=== PATIENT | female | born 1960 | race Caucasian/White ===

== ENCOUNTER 2021-03-28 16:42 | Emergency (ER) | payer OTHER ==
[2021-03-28 16:50] VITALS: BP 130/76
[2021-03-28] MEDS ORDERED: BUFFERED LIDOCAINE 10 ML SYRINGE SUBQ STA (18:10)
[2021-03-28] MEDS ORDERED: ONDANSETRON ODT 4 MG TABLET TL STA (18:11)
[2021-03-28] MEDS ORDERED: HYDROmorphone 1 MG/ML CARPUJECT IM STA (18:11)
--- NOTE | 2021-03-28 18:13 | ED Physician Documentation ---
History of Present Illness - Stated complaint Stated Complaint: FALL DOWN STAIRS/HEAD INJ/BLEED - Chief complaint Chief Complaint: Trauma Hd/Nk - Additonal information Additional information: 60-year-old female presents emergency department for evaluation of posterior scalp trauma headache and neck pain after a fall down 2 stairs. She was descending the stairs that she had reached the bottom missed them fell forward landing on her right hip but striking her head on the corner of a door. She did not lose consciousness but immediately had a headache nausea and for a brief period of blurry vision. She does have a posterior scalp laceration bleeding controlled with pressure. Patient is not anticoagulated. Past medical history most significant for hypertension for which she takes lisinopril she also has a history of cervical neck pain status post fusion with known bulging disks. Review of Systems Constitutional: denies: Fever, Chills Eyes: reports: Reviewed and negative Ears: reports: Tinnitus/ringing. denies: Loss of hearing, Ear pain, Drainage/discharge Nose: denies: Rhinorrhea / runny nose, Congestion, Epistaxis Throat: reports: Reviewed and negative Cardiac: denies: Chest pain / pressure, Palpitations Respiratory: denies: Dyspnea, Cough GI: denies: Abdominal Pain, Abdominal Swelling : denies: Dysuria, Frequency, Hesitancy Skin: reports: Laceration (s) (Posterior occiput). denies: Rash, Lesions Musculoskeletal: reports: Neck pain. denies: Back pain, Extremity pain, Joint pain Neurologic: reports: Headache, Head injury. denies: Syncope, Seizure, Confused, LOC Psychiatric: reports: Reviewed and negative PD PAST MEDICAL HISTORY - Allergies Allergies/Adverse Reactions: Allergies Allergy/AdvReac Type Severity Reaction Status Date / Time No Known Drug Allergies Allergy Verified 03/28/21 16:46 PD ED PE EXPANDED - General General: Alert, No acute distress, Well developed/nourished - HEENT HEENT: Head injury, PERRL (Negative for raccoon eyes and adorno sign.), Other (3 cm laceration linear posterior occiput. No surrounding hematoma ecchymosis or cranial tenderness.) - Cardiac Cardiac: Regular Rate, Radial strong equal, Cap refill < 2 sec. No: Murmur Present - Respiratory Respiratory: Clear to ausultation ana. No: Distress, Labored - Abdomen Abdomen: Normal Bowel sounds. No: Tender to palpation - Derm Derm: Laceration(s) - Extremities Extremities: Normal. No: Deformity, Tenderness - Neuro Neuro: Alert and Oriented X 3, CNII-XII intact, Normal gait, Normal speech - GCS Eye Opening: Spontaneous Motor: Obeys Commands Verbal: Oriented Total: 15 Results - Vitals Vitals: Vital Signs - 24 hr 03/28/21 16:46 Temperature 36.5 C Heart Rate 60 Respiratory 16 Rate Blood Pressure 130/76 O2 Saturation 100 Oxygen O2 Source Room air - Rads (name of study) CT head Radiology: Final report received (No acute process) Cervical CT Radiology: Final report received (Straightening of the normal curvature. No fracture. Hardware is intact.) Procedures - Laceration (location) posterior occiput Length in cm: 3 Wound type: Linear, Into subcut fat Neurovascular status: Sensory intact Anesthesia: Lidocaine 1% Wound preparation: Chlorhexadine, Irrigated copiously NS Skin layer closure: Fabiano (5) Other: Patient tolerated well, No complications, Tetanus UTD PD MEDICAL DECISION MAKING - ED course Complexity details: reviewed results, re-evaluated patient, d/w patient ED course: 60-year-old female presents emergency department for evaluation of headache and neck pain after falling down 2 stairs striking her head on the corner of a door. She had immediate headache and nausea but no loss of consciousness. She presents with a 3 cm posterior scalp laceration. This was easily closed with 5 fabiano. Her tetanus is up-to-date. CT of the head is without acute findings. Given history of a spinal fusion CT of the neck was obtained given mechanism. No fracture or dislocation. Hardware is intact though there is straightening of the normal cervical curvature. I suspect that she does have a postconcussive injury. Routine wound care to the laceration and staple removal in 5 to 7 days was discussed. Emergent return precautions discussed Departure - Departure Disposition: 01 Home, Self Care Clinical Impression: Fall (on) (from) other stairs and steps, initial encounter Occipital scalp laceration Qualifiers: Encounter type: initial encounter Qualified Code(s): S01.01XA - Laceration without foreign body of scalp, initial encounter Concussion Qualifiers: Encounter type: initial encounter Loss of consciousness presence/duration: without LOC Qualified Code(s): S06.0X0A - Concussion without loss of consciousness, initial encounter Condition: Stable Record reviewed to determine appropriate education?: Yes Instructions: Concussion Picher, ED Concussion Comments: [place] after a fall. You sustained a 3 cm posterior scalp laceration. This was closed with 5 fabiano. These should be removed in 5 to 7 days. You may shower normally. Do recommend that you place a thin layer of antibiotic ointment such as Neosporin or bacitracin over the wound after showering. If at any point you have concerns of infection, fevers redness increased pain or milky drainage from around the laceration please return to the ER for a second look. The CT of your head neck do not show any broken bones or concerns of bleeding in the brain but given the mechanism I suspect that you do have a concussion. The most important treatment for concussion is allowing the brain to rest. You need adequate sleep at night, avoid caffeine stimulants and alcohol. Please avoid screen time and limit cell phone TV and computer use to less than 2 hours a day. I do recommend that you take Tylenol or ibuprofen for headache and neck pain. At any point you feel that your symptoms are worsening, you have a suddenly severe headache, uncontrolled vomiting, are significantly lethargic or have focal weakness in your arms or legs and please return immediately to the ER for a second evaluation.
--- NOTE | 2021-03-28 19:10 | CT Report ---
PROCEDURE: CERVICAL SPINE WO INDICATIONS: seack pain after fall TECHNIQUE: Noncontrast 3 mm thick sections acquired from the skull base to the T4 level. Sagittal and coronal r eformats were then constructed. For radiation dose reduction, the following was used: automated exp osure control, adjustment of mA and/or kV according to patient size. COMPARISON: None. FINDINGS: Image quality: Excellent. Bones: No fractures or dislocations. Visualized superior ribs are intact. There is straightening o f normal cervical curvature. Anterior fusion from C4 through C6 is present. Hardware appears intact. Soft tissues: Prevertebral soft tissues are normal in thickness. No paravertebral hematomas. No ap ical pneumothoraces. IMPRESSION: No visualized fracture. Reviewed by: Radha Ghosh MD on 03/28/2021 7:09 PM PDT Approved by: Radha Ghosh MD on 03/28/2021 7:09 PM PDT Station ID: [id number]
--- NOTE | 2021-03-28 19:11 | CT Report ---
PROCEDURE: HEAD WO INDICATIONS: neck pain afer fall TECHNIQUE: Noncontrast 4.5 mm thick angled axial sections acquired from the foramen magnum to the vertex. For r adiation dose reduction, the following was used: automated exposure control, adjustment of mA and/or kV according to patient size. COMPARISON: CT cervical spine 03/28/2021 FINDINGS: Image quality: Excellent. CSF spaces: Basal cisterns are patent. No extra-axial fluid collections. Ventricles are normal in size and shape. Brain: No midline shift. No intracranial masses or hemorrhage. German-white matter interface is norm al. Skull and face: Calvarium and visualized facial bones are intact, without suspicious lesions. Sinuses: Visualized sinuses and mastoids are clear. IMPRESSION: 1. No acute intracranial process. Reviewed by: Radha Ghosh MD on 03/28/2021 7:10 PM PDT Approved by: Radha Ghosh MD on 03/28/2021 7:10 PM PDT Station ID: [id number]
[2021-03-28] MEDS ORDERED: BACITRACIN ZINC OINT 1 PACKET TOP STA (19:19)
== END 2021-03-28 19:21 | disposition home or self-care (01) ==
LOC: ED 16:42
DX: S01.01XA Laceration without foreign body of scalp, initial encounter (principal); S06.0X0A Concussion without loss of consciousness, initial encounter; I10 Essential (primary) hypertension; Z98.1 Arthrodesis status; W10.8XXA Fall (on) (from) other stairs and steps, initial encounter; Y93.89 Activity, other specified
CPT/HCPCS: 12002; 99282; 99284

== ENCOUNTER 2021-11-20 08:27 | Outpatient (CLI) | payer OTHER ==
--- NOTE | 2021-11-29 08:38 | Mammography Report ---
BILATERAL DIGITAL SCREENING MAMMOGRAM 3D/2D: 11/20/2021 CLINICAL: Routine screening. No prior exams were available for comparison. There are scattered fibroglandular elements in both br easts. No significant masses, calcifications, or other findings are seen in either breast. IMPRESSION: NEGATIVE There is no mammographic evidence of malignancy. A 1 year screening mammogram is recommended. This exam was interpreted at Station ID: [id number]. NOTE: For mammograms, a report in lay terms will be sent to the patient. Approximately 15% of breast malignancies will not be visualized mammographically. In the management of a palpable breast mass, a negative mammogram must not discourage biopsy of a clinically suspicious lesion. Electronically Signed By: Dominique cosby/matilda:11/28/2021 08:52:24 ACR BI-RADS Category 1: Negative 3341F PARENCHYMAL PATTERN: (A) - The breast(s) demonstrate(s) scattered fibroglandular densities. BI-RADS CATEGORY: (1) - 1 RECOMMENDATION: (ANNUAL) - Recommend routine annual screening mammography. [id number] 1 year screening LATERALITY: (B)
== END 2021-11-20 08:28 | disposition home or self-care (01) ==
LOC: DI.N 08:27
DX: Z12.31 Encounter for screening mammogram for malignant neoplasm of breast (principal)

== ENCOUNTER 2022-06-20 12:42 | Outpatient (CLI) | payer OTHER ==
[2022-06-20 13:08] LABS: ALBUMIN 4.5 g/dL (3.2-5.5); BILIRUBIN,DIRECT 0.1 mg/dL (0.1-0.5); BILIRUBIN,TOTAL 0.8 mg/dL (0.2-1.0); TOTAL PROTEIN 7.2 g/dL (6.7-8.2)
== END 2022-06-20 12:43 | disposition home or self-care (01) ==
LOC: LAB 12:42
PROVIDERS: ATTEND Internal Medicine Gastroenterology
DX: R11.2 Nausea with vomiting, unspecified (principal); R10.84 Generalized abdominal pain
CPT/HCPCS: 36415; 80076

== ENCOUNTER 2022-12-01 07:41 | Outpatient (CLI) | payer OTHER ==
--- NOTE | 2022-12-01 12:05 | MRI Report ---
PROCEDURE: ANKLE WO - LT INDICATIONS: CHRONIC PAIN INSTEP OF LEFT ANKLE AND ARCH TECHNIQUE: Noncontrast Magnetic Resonance Imaging (MRI) of the ankle/hindfoot was performed utilizing the follow ing sequences: sagittal T1 spin echo, sagittal T2 fast spin echo with fat saturation, axial PD fast s pin echo, axial T2 fast spin echo with fat saturation, coronal T1 spin echo, and coronal T2 fast spin echo with fat saturation. COMPARISON: None. FINDINGS: Image quality: Excellent. Bones and joints: No acute trabecular bone injury or fracture. No hindfoot coalition. Full-thickness cartilage loss is seen at the medial talar dome with mild subchondral edema and remodeling of the subchondral plate but no definite osteochondral defect. Mild degenerative changes are seen at the second and third tarsome tatarsal joints with mild subchondral edema. Osseous edema within the plantar aspect of the calcaneus is most likely reactive. Medial structures: The deltoid ligament and the spring ligament are intact. There is mild tenosynovitis of the medial fl exor tendons. A lobular cyst is seen in the region of the tarsal tunnel measuring 2.5 x 1.1 x 0.8 cm, just anterior to the posterior tibial neurovascular bundle. No acute or chronic denervation changes are seen within the visualized foot musculature. Lateral structures: There is chronic complete tearing of the anterior talofibular ligament. The calcaneofibular ligament appears thickened and indistinct, consistent with a remote prior moderate grade sprain. The posterior talofibular ligament is intact. The anterior and posterior tibiofibular ligaments are intact. The pe roneus longus and peroneus brevis tendons demonstrate mild tendinosis. The sinus tarsi demonstrates m ild partial effacement of the normal fatty signal. Anterior structures: The tibialis anterior, extensor hallucis longus, and extensor digitorum longus tendons appear intact. Posterior and plantar structures: The Achilles tendon is intact. There is thickening of the proximal plantar fascia with a small amount of fluid signal intensity within the central band of its calcaneal attachment, consistent with parti al tearing. There is surrounding soft tissue edema. Osseous edema is seen in the adjacent portion of the calcaneus where there is a small plantar calcaneal enthesophyte. No acute osseous fracture. No di sproportionate atrophy of the abductor digiti minimi muscle. IMPRESSION: 1.Partial tearing of the proximal plantar fascia superimposed on chronic fasciitis, with surrounding soft tissue and osseous edema. No acute osseous fracture. 2.Chronic complete tearing of the anterior talofibular ligament. Remote prior moderate grade sprain o f the calcaneofibular ligament. 3.Mild peroneus brevis and longus tendinosis. 4.Mild tenosynovitis of the posterior tibialis, flexor digitorum longus, and flexor hallucis longus t endons. 5.Lobular ganglion cyst is seen within the tarsal tunnel just anterior to the posterior tibial neurov ascular bundle. No acute or chronic denervation changes are seen within the included foot musculature . Recommend correlation for tarsal tunnel syndrome. 6.Focal full-thickness cartilage loss at the medial talar dome with subchondral edema. Mild degenerat dolly changes at the second and third tarsometatarsal joints. Reviewed by: Anjel Albarran MD on 12/01/2022 12:04 PM PST Approved by: Anjel Albarran MD on 12/01/2022 12:04 PM PST Station ID: [id number]
== END 2022-12-01 07:42 | disposition home or self-care (01) ==
LOC: DI 07:41
PROVIDERS: ATTEND Podiatrist
DX: S96.822A Laceration of other specified muscles and tendons at ankle and foot level, left foot, initial encounter (principal); S93.492A Sprain of other ligament of left ankle, initial encounter; M67.874 Other specified disorders of tendon, left ankle and foot; M67.472 Ganglion, left ankle and foot; M94.272 Chondromalacia, left ankle and joints of left foot; M19.072 Primary osteoarthritis, left ankle and foot

== ENCOUNTER 2022-12-05 14:19 | Outpatient (CLI) | payer OTHER ==
--- NOTE | 2022-12-08 11:15 | Mammography Report ---
BILATERAL DIGITAL SCREENING MAMMOGRAM 3D/2D: 12/05/2022 CLINICAL: Routine screening. Comparison is made to exam dated: 11/20/2021 mammogram - [facility]. There are scattered areas of fibroglandular density in both breasts (category b / 25%-50% glandular t issue). No significant masses, calcifications, or other findings are seen in either breast. There has been no significant interval change. IMPRESSION: NEGATIVE There is no mammographic evidence of malignancy. A 1 year screening mammogram is recommended. Based on the Tyrer Cuzick model (a risk assessment model) the patients lifetime risk is 9.2% and her 10 year risk is 3.8%. According to the ACR, ACS, and NCCN guidelines, an annual breast MRI exam ree g with mammogram is recommended if the patients lifetime risk is 20% or greater. This exam was interpreted at Station ID: [id number]. NOTE: For mammograms, a report in lay terms will be sent to the patient. Approximately 15% of breast malignancies will not be visualized mammographically. In the management of a palpable breast mass, a negative mammogram must not discourage biopsy of a clinically suspicious lesion. Electronically Signed By: James Gomez M.D. aty/matilda:12/05/2022 17:32:25 letter sent: No_Letter ACR BI-RADS Category 1: Negative 3341F PARENCHYMAL PATTERN: (A) - The breast(s) demonstrate(s) scattered fibroglandular densities. BI-RADS CATEGORY: (1) - 1 Mammogram [id number] 1 year screening LATERALITY: (B)
== END 2022-12-05 14:20 | disposition home or self-care (01) ==
LOC: DI 14:19
DX: Z12.31 Encounter for screening mammogram for malignant neoplasm of breast (principal)

== ENCOUNTER 2023-12-09 08:01 | Outpatient (CLI) | payer OTHER ==
--- NOTE | 2023-12-10 08:35 | Mammography Report ---
BILATERAL DIGITAL SCREENING MAMMOGRAM 3D/2D: 12/09/2023 CLINICAL: Routine screening. Comparison is made to exams dated: 12/05/2022 mammogram and 11/20/2021 mammogram - [facility]. There are scattered areas of fibroglandular density in both breasts (category b / 25%-50% glandular t issue). No significant masses, calcifications, or other findings are seen in either breast. There has been no significant interval change. IMPRESSION: NEGATIVE There is no mammographic evidence of malignancy. A 1 year screening mammogram is recommended. Based on the Tyrer Cuzick model (a risk assessment model) the patient's lifetime risk is 8.9% and her 10 year risk is 3.9%. According to the ACR, ACS, and NCCN guidelines, an annual breast MRI exam ree g with mammogram is recommended if the patient's lifetime risk is 20% or greater. This exam was interpreted at Station ID: [id number]. NOTE: For mammograms, a report in lay terms will be sent to the patient. Approximately 15% of breast malignancies will not be visualized mammographically. In the management of a palpable breast mass, a negative mammogram must not discourage biopsy of a clinically suspicious lesion. Electronically Signed By: Jeffrey Dye M.D. [facility] [place]12/09/2023 20:42:53 ACR BI-RADS Category 1: Negative 3341F PARENCHYMAL PATTERN: (A) - The breast(s) demonstrate(s) scattered fibroglandular densities. BI-RADS CATEGORY: (1) - 1 RECOMMENDATION: (ANNUAL) - Recommend routine annual screening mammography. [id number] 1 year screening LATERALITY: (B)
== END 2023-12-09 08:02 | disposition home or self-care (01) ==
LOC: DI 08:01
DX: Z12.31 Encounter for screening mammogram for malignant neoplasm of breast (principal); R92.323 Mammographic fibroglandular density, bilateral breasts

== ENCOUNTER 2023-12-23 08:16 | Outpatient (CLI) | payer OTHER ==
--- NOTE | 2023-12-23 09:55 | Ultrasound Report ---
ULTRASOUND OF LEFT AXILLA: 12/23/2023 CLINICAL: Palpable left axilla lump. Comparison is made to exams dated: 12/09/2023 mammogram, 12/05/2022 mammogram, and 11/20/2021 mammogram - [facility]. Color flow and real-time ultrasound of the left axilla were performed. German scale images of the real -time examination were reviewed. No significant abnormalities were seen sonographically in the left axilla. IMPRESSION: NEGATIVE No sonographic evidence of malignancy in the region of the palpable abnormality. A 1 year screening mammogram is recommended. 12/09/2024 screening mammogram. Exam findings were conveyed to the patient. Patient is advised to monitor for significant change. Cli nical follow-up as needed. This exam was interpreted at Station ID: [id number]. Electronically Signed By: Jeffrey Dye M.D. slc/:12/23/2023 09:00:11 Ultrasound BI-RADS: 1 Negative BI-RADS CATEGORY: (1) - 1 RECOMMENDATION: (ANNUAL) - Recommend routine annual screening mammography. [id number] 1 year screening LATERALITY: (B)
== END 2023-12-23 08:17 | disposition home or self-care (01) ==
LOC: DI 08:16
PROVIDERS: ATTEND Internal Medicine
DX: N63.32 Unspecified lump in axillary tail of the left breast (principal)

== ENCOUNTER 2024-06-14 07:41 | Outpatient (CLI) | payer OTHER ==
--- NOTE | 2024-06-14 15:58 | DEXA Report ---
PROCEDURE: Dexa Spine and/or Hip INDICATIONS: POST MENOPAUSAL TECHNIQUE: Dual energy x-ray absorptiometry (DEXA) was performed in the regions detailed below. COMPARISON: None. FINDINGS: Lumbar Spine: Bone Mineral Density 1.178 g/cm/cm,T score 0.0. Normal Left Femoral Neck: Bone Mineral Density 0.857 g/cm/cm, T score -1.3. Osteopenia Left Total Hip: Bone Mineral Density 0.939 g/cm/cm,T score -0.5. Normal FRAX 10-year Fracture Risk Assesment Tool 10 year risk of major osteoporotic fracture: 7.8% 10 year risk of hip fracture: 0.6% (T score greater or equal to -1.0: NORMAL) (T score from -1.1 to -2.4: OSTEOPENIA) (T score less than or equal to -2.5 to: OSTEOPOROSIS) IMPRESSION: Osteopenia Patients with diagnosis of osteoporosis or osteopenia should have regular bone mineral density assess ment. For those eligible for Medicare, routine testing is allowed once every 2 years. Testing frequ ency can be increased for patients who have rapidly progressing disease or for those who are receivin g medical therapy to restore bone mass. Reviewed by: Conor Garcia MD on 06/14/2024 2:56 PM HEATHER Approved by: Conor Garcia MD on 06/14/2024 2:56 PM [facility] Station ID: [id number]
== END 2024-06-14 07:42 | disposition home or self-care (01) ==
LOC: DI 07:41
PROVIDERS: ATTEND Internal Medicine
DX: M85.88 Other specified disorders of bone density and structure, other site (principal); Z78.0 Asymptomatic menopausal state